=== PATIENT | female | born 1965 | race Caucasian/White ===

== ENCOUNTER 2017-01-30 10:13 | Inpatient (IN) | payer BC ==
[~2017-01-30] VITALS: Ht 152.4 cm; Wt 85.9 kg
[2017-01-30] VITALS (8 sets, daily range): BP systolic 136–147; BP diastolic 64–94; PULSE 78–124; RESP 16–20; TEMP 97.9–98; O2SAT 94–99
[2017-01-30] MEDS ORDERED: SODIUM CHLOR 0.9% 1000 ML INJ 1,000 ML IV ONE (10:30)
[2017-01-30] MEDS ORDERED: ONDANSETRON HCL 4 MG/2 ML VIAL IV PUSH ONE (10:30)
[2017-01-30] MEDS ORDERED: SODIUM CHLORIDE 0.9% FLUSH 10 ML FLUSH IV FLUSH PRN ×2 (10:30→13:45)
--- NOTE | 2017-01-30 10:34 | PD ---
HPI Chief Complaint: GI Complaint Time Seen by Provider: 10:28 Travel History International Travel<30 days: No Contact w/Intl Traveler<30days: No Traveled to known affect area: No History of Present Illness HPI 51-year-old female patient with history of no significant past medical issues, presents to the ER today with nausea, vomiting, abdominal cramping pains, and states she has been constipated for several weeks. She did have a bowel movement with Dulcolax this morning. She denies any fevers or any other symptoms. Abdominal pain is generalized and stated to be a 9 out of 10. She does not know any sick contacts. She denies any exacerbating or alleviating factors. Modifying Factors: None Associated Signs & Symptoms: Nausea, vomiting, abdominal pains, constipation Risk Factors: None PFSH Past Medical History Diminished Hearing: No ?: Not Social History Alcohol Use: Yes Tobacco Use: No Substance Use: No Allergies-Medications (Allergen,Severity, Reaction): Coded Allergies: No Known Allergies (Unverified Adverse Reaction, Unknown, 01/30/17) Reported Meds & Prescriptions Reported Meds & Active Scripts Active Reported Xanax (Alprazolam) 0.25 Mg Tab Unknown Dose PO DIRECTED PRN Bupropion HCl 75 Mg Tab Unknown Dose PO BID Review of Systems Except as stated in HPI: all other systems reviewed are Neg Physical Exam Narrative GENERAL: Well-developed middle age female patient currently in mild distress. Awake and oriented 3. SKIN: Focused skin assessment warm/dry. HEAD: Atraumatic. Normocephalic. EYES: Pupils equal and round. No scleral icterus. No injection or drainage. ENT: No nasal bleeding or discharge. Mucous membranes pink and moist. NECK: Trachea midline. No JVD. Supple. CARDIOVASCULAR: Regular rate and rhythm. No murmur appreciated. RESPIRATORY: No accessory muscle use. Clear to auscultation. Breath sounds equal bilaterally. GASTROINTESTINAL: Abdomen soft, mild diffuse abdominal tenderness without guarding or rebound, nondistended. Hepatic and splenic margins not palpable. MUSCULOSKELETAL: No obvious deformities. No clubbing. No cyanosis. No edema. NEUROLOGICAL: Awake and alert. No obvious cranial nerve deficits. Motor grossly within normal limits. Normal speech. PSYCHIATRIC: Appropriate mood and affect; insight and judgment normal. Data Data Last Documented VS Vital Signs Date Time Temp Pulse Resp B/P (MAP) Pulse Ox O2 Delivery O2 Flow Rate FiO2 01/30/17 12:12 85 16 147/72 (97) 99 Room Air 01/30/17 10:17 98.0 Orders Orders Complete Blood Count With Diff (01/30/17 10:25) Comprehensive Metabolic Panel (01/30/17 10:25) Lipase (01/30/17 10:25) Urinalysis - C+S If Indicated (01/30/17 10:25) Iv Access Insert/Monitor (01/30/17 10:25) Ecg Monitoring (01/30/17 10:25) Oximetry (01/30/17 10:25) Sodium Chloride 0.9% Flush (Ns Flush) (01/30/17 10:30) Sodium Chlor 0.9% 1000 Ml Inj (Ns 1000 M (01/30/17 10:30) Ondansetron Inj (Zofran Inj) (01/30/17 10:30) Abdomen, Flat & Upright (01/30/17 10:28) Ct Abd/Pel W Iv Contrast(Rout) (01/30/17 11:31) Hydromorphone Pf Inj (Dilaudid Pf Inj) (01/30/17 12:30) Iohexol 350 Inj (Omnipaque 350 Inj) (01/30/17 12:50) Blood Culture (01/30/17 13:02) Ciprofloxacin 400 Mg Premix (Cipro 400 M (01/30/17 13:15) Metronidazole 500 Mg Inj (Flagyl 500 Mg (01/30/17 13:15) Admit Order (Ed Use Only) (01/30/17 13:37) Labs Laboratory Tests Test 01/30/17 10:35 01/30/17 10:45 Urine Collection Type CLEAN CATCH Urine Color YELLOW Urine Turbidity CLEAR Urine pH 5.5 Urine Specific [place] 1.025 Urine Protein NEG mg/dL Urine Glucose (UA) NEG mg/dL Urine Ketones 40 mg/dL Urine Occult Blood TRACE Urine Nitrite NEG Urine Bilirubin NEG Urine Leukocyte Esterase NEG Urine RBC 0-3 /hpf Urine WBC 0-2 /hpf Urine Squamous Epithelial Cells 0-5 /hpf Urine Bacteria OCC /hpf Microscopic Urinalysis Comment CULT NOT INDICATED Urine Collection Time 10:35 White Blood Count 25.3 TH/MM3 Red Blood Count 5.57 MIL/MM3 Hemoglobin 16.3 GM/DL Hematocrit 50.0 % Mean Corpuscular Volume 89.7 FL Mean Corpuscular Hemoglobin 29.3 PG Mean Corpuscular Hemoglobin Concent 32.6 % Red Cell Distribution Width 13.3 % Platelet Count 341 TH/MM3 Mean Platelet Volume 8.3 FL Neutrophils (%) (Auto) 86.2 % Lymphocytes (%) (Auto) 3.3 % Monocytes (%) (Auto) 6.7 % Eosinophils (%) (Auto) 0.0 % Basophils (%) (Auto) 3.8 % Neutrophils # (Auto) 21.8 TH/MM3 Lymphocytes # (Auto) 0.8 TH/MM3 Monocytes # (Auto) 1.7 TH/MM3 Eosinophils # (Auto) 0.0 TH/MM3 Basophils # (Auto) 1.0 TH/MM3 CBC Comment AUTO DIFF Differential Total Cells Counted 100 Neutrophils % (Manual) 81 % Band Neutrophils % 5 % Lymphocytes % 6 % Monocytes % 8 % Neutrophils # (Manual) 21.8 TH/MM3 Differential Comment FINAL DIFF MANUAL Platelet Estimate NORMAL Platelet Morphology Comment NORMAL Blood Urea Nitrogen 22 MG/DL Creatinine 0.96 MG/DL Random Glucose 124 MG/DL Total Protein 8.5 GM/DL Albumin 3.8 GM/DL Calcium Level 9.1 MG/DL Alkaline Phosphatase 66 U/L Aspartate Amino Transf (AST/SGOT) 32 U/L Alanine Aminotransferase (ALT/SGPT) 29 U/L Total Bilirubin 0.6 MG/DL Sodium Level 135 MEQ/L Potassium Level 4.7 MEQ/L Chloride Level 102 MEQ/L Carbon Dioxide Level 24.6 MEQ/L Anion Gap 8 MEQ/L Estimat Glomerular Filtration Rate 61 ML/MIN Lipase 64 U/L [facility] Medical Decision Making Medical Screen Exam Complete: Yes Emergency Medical Condition: Yes Medical Record Reviewed: Yes Interpretation(s) Laboratory Tests Test 01/30/17 10:35 01/30/17 10:45 Urine Ketones 40 mg/dL (NEG) Urine Occult Blood TRACE (NEG) Urine Bacteria OCC /hpf (NONE) White Blood Count 25.3 TH/MM3 (4.0-11.0) Red Blood Count 5.57 MIL/MM3 (4.00-5.30) Hemoglobin 16.3 GM/DL (11.6-15.3) Hematocrit 50.0 % (35.0-46.0) Neutrophils (%) (Auto) 86.2 % (16.0-70.0) Lymphocytes (%) (Auto) 3.3 % (9.0-44.0) Basophils (%) (Auto) 3.8 % (0.0-2.0) Neutrophils # (Auto) 21.8 TH/MM3 (1.8-7.7) Lymphocytes # (Auto) 0.8 TH/MM3 (1.0-4.8) Monocytes # (Auto) 1.7 TH/MM3 (0-0.9) Basophils # (Auto) 1.0 TH/MM3 (0-0.2) Neutrophils % (Manual) 81 % (16-70) Lymphocytes % 6 % (9-44) Neutrophils # (Manual) 21.8 TH/MM3 (1.8-7.7) Blood Urea Nitrogen 22 MG/DL (7-18) Random Glucose 124 MG/DL (74-106) Total Protein 8.5 GM/DL (6.4-8.2) Sodium Level 135 MEQ/L (136-145) Estimat Glomerular Filtration Rate 61 ML/MIN (>89) Lipase 64 U/L (73-393) Last 24 hours Impressions Abdomen/Pelvis CT 01/30/17 1131 Signed Impressions: Service Date/Time: Monday, January 30, 2017 12:42 - CONCLUSION: Colitis involving most of the colon, sparing the sigmoid which has multiple diverticuli There is no free fluid or free air. Steve Taylor MD FACR Abdomen X-Ray 01/30/17 1028 Signed Impressions: Service Date/Time: Monday, January 30, 2017 10:33 - CONCLUSION: Negative. Minimal stool sigmoid colon. Steve Taylor MD FACR Differential Diagnosis Nausea, vomiting, abdominal pains, constipation: Constipation versus gastroenteritis versus dehydration versus metabolic issues versus obstruction Narrative Course Lab work shows significant leukocytosis and CAT scan was ordered for further evaluation. CAT scan is showing colitis area and no other acute intra- abdominal processes were identified. She was given IV Cipro and Flagyl after cultures of the blood was taken. At this point, my plan would be to admit her for further treatment and evaluation. Case was discussed with hospitalist for admission. Diagnosis Primary Impression: Colitis Additional Impressions: GI bleed Sepsis Admitting Information Admitting Physician Requests: Admit Melquiades Valentine MD Jan 30, 2017 10:34
[2017-01-30] MEDS ORDERED: ALPR.25 PO (10:38)
[2017-01-30] MEDS ORDERED: BUPR75TA PO (10:38)
[2017-01-30 10:43] LABS: GLUCOSE,URINE NEG (NEG); KETONE, URINE 40 mg/dL (NEG); NITRITE,URINE NEG (NEG); PH, URINE 5.5 (5.0-8.5); URINE LEUKOCYTE ESTERASE NEG (NEG)
[2017-01-30 10:44] LABS: BILIRUBIN, URINE NEG (NEG); BLOOD, URINE TRACE (NEG)
[2017-01-30 10:47] LABS: BACTERIA, URINE OCC /hpf; RBC, URINE 0-3 /hpf (0-3); SQUAMOUS EPITHELIAL CELL URINE 0-5 /hpf (0-5); URINE COLOR YELLOW (YELLW/STRAW); WBC, URINE 0-2 /hpf (0-5)
[2017-01-30 10:54] LABS: AUTOMATED NEUTROPHIL # 21.8 TH/MM3 (1.8-7.7); BASOPHIL % 3.8 % (0.0-2.0); HEMOGLOBIN 16.3 GM/DL (11.6-15.3); LYMPH % 3.3 % (9.0-44.0); LYMPHOCYTE # 0.8 TH/MM3 (1.0-4.8); MEAN CELL VOLUME 89.7 FL (80.0-100.0); MEAN CORPUSCULAR HEMOGLOBIN 29.3 PG (27.0-34.0); MEAN CORPUSCULAR HGB CONC 32.6 % (32.0-36.0); MEAN PLATELET VOLUME 8.3 FL (7.0-11.0); MONO % 6.7 % (0.0-8.0); MONOCYTE # 1.7 TH/MM3 (0-0.9); NEUT % 86.2 % (16.0-70.0); PLATELET COUNT 341 TH/MM3 (150-450); RED BLOOD COUNT 5.57 MIL/MM3 (4.00-5.30); RED CELL DISTRIBUTION WIDTH 13.3 % (11.6-17.2); WHITE BLOOD COUNT 25.3 TH/MM3 (4.0-11.0)
[2017-01-30 11:04] LABS: CHLORIDE 102 MEQ/L (98-107); SODIUM (NA) 135 MEQ/L (136-145)
--- NOTE | 2017-01-30 11:08 | RADRPT ---
EXAM DATE/TIME: 01/30/2017 10:33 [facility] COMPARISON: No previous studies available for comparison. INDICATIONS : Abdominal pain. Constipation for one week. Patient states she took Dulcolax this monrning and has bee n vomting. MEDICAL HISTORY : None. SURGICAL HISTORY : Hysterectomy. Bladder repair. ENCOUNTER: Initial ACUITY: 1 day PAIN SCORE: 8/10 LOCATION: Bilateral abdomen. FINDINGS: Supine and upright views of the abdomen were performed. The abdominal bowel gas pattern is normal. No air fluid levels are seen. No abnormal masses, calcifications, or organomegaly is seen. The visu alized lower lungs are clear. No evidence of free intraperitoneal gas. The osseous structures are u nremarkable. CONCLUSION: Negative. Minimal stool sigmoid colon. Steve Taylor MD FACR on January 30, 2017 at 11:06 Board Certified Radiologist. This report was verified electronically.
[2017-01-30 11:09] LABS: ALBUMIN 3.8 GM/DL (3.4-5.0); BICARBONATE 24.6 MEQ/L (21.0-32.0); CALCIUM 9.1 MG/DL (8.5-10.1); GLUCOSE,RANDOM 124 MG/DL (74-106); LIPASE 64 U/L (73-393)
[2017-01-30 11:10] LABS: BLOOD UREA NITROGEN 22 MG/DL (7-18)
[2017-01-30 11:12] LABS: ALT (GPT) 29 U/L (10-53); AST (GOT) 32 U/L (15-37); CREATININE 0.96 MG/DL (0.50-1.00); GLOMERULAR FILTRATION RATE 61 ML/MIN (>89)
[2017-01-30 11:14] LABS: TOTAL BILIRUBIN ADULT 0.6 MG/DL (0.2-1.0); TOTAL PROTEIN 8.5 GM/DL (6.4-8.2)
[2017-01-30 11:15] LABS: ALKALINE PHOSPHATASE 66 U/L (45-117)
[2017-01-30 12:01] LABS: BANDS 5 % (0-6); LYMPHOCYTES 6 % (9-44); MONOCYTES 8 % (0-8); NEUTROPHIL # MANUAL DIFF 21.8 TH/MM3 (1.8-7.7); POLYS (SEG NEUTROPHILS) 81 % (16-70)
[2017-01-30] MEDS ORDERED: HYDROmorphone HCL PF 2 MG/ML VIAL IV PUSH ONE (12:30)
[2017-01-30] MEDS ORDERED: IOHEXOL 350 MG/ML 10 ML VIAL (for RAD DIAG) IVCONTRAST ONE (12:50)
[2017-01-30] MEDS ORDERED: metroNIDAZOLE 500 MG INJ 100 ML IV ONE (13:15)
[2017-01-30] MEDS ORDERED: CIPROFLOXACIN 400 MG PREMIX 200 ML IV ONE (13:15)
--- NOTE | 2017-01-30 13:19 | RADRPT ---
EXAM DATE/TIME: 01/30/2017 12:42 [facility] COMPARISON: No previous studies available for comparison. INDICATIONS : Diffuse abdominal pain. IV CONTRAST: 90 cc Omnipaque 350 (iohexol) IV ORAL CONTRAST: No oral contrast ingested. RADIATION DOSE: 16.92 CTDIvol (mGy) MEDICAL HISTORY : None SURGICAL HISTORY : Hysterectomy. Bladder sling ENCOUNTER: Initial ACUITY: 2 days PAIN SCALE: 6/10 LOCATION: Bilateral pelvis abdomen TECHNIQUE: Volumetric scanning of the abdomen and pelvis was performed. Using automated exposure control and ad justment of the mA and/or kV according to patient size, radiation dose was kept as low as reasonably achievable to obtain optimal diagnostic quality images. DICOM format image data is available electro nically for review and comparison. FINDINGS: Lung base is are clear. Liver and gallbladder are unremarkable Spleen, pancreas and adrenals unremarkable Symmetric renal function Colitis involving most of the exiting transverse and descending colon down to the level of sigmoid co nuria normal diverticula are noted. Pelvic contents are otherwise unremarkable. CONCLUSION: Colitis involving most of the colon, sparing the sigmoid which has multiple diverticu li There is no free fluid or free air. Steve Taylor MD FACR on January 30, 2017 at 13:16 Board Certified Radiologist. This report was verified electronically.
[2017-01-30] MEDS ORDERED: ACETAMINOPHEN 325 MG TAB PO PRN (13:45)
[2017-01-30] MEDS ORDERED: ACETAMINOPHEN/HYDROcodone 325 MG/5 MG TAB PO PRN (13:45)
--- NOTE | 2017-01-30 14:13 | HHI.HP ---
HPI Service [facility] Primary Care Physician Carlos Elias DO Admission Diagnosis colitis/GI bleeding/leukocytosis/sepsis Diagnoses: (1) Sepsis Diagnosis: Principal (2) Colitis Diagnosis: Principal (3) GI bleed Diagnosis: Principal Travel History International Travel<30 Days: No Contact w/Intl Traveler <30 Da: No Traveled to Known Affected Are: No Sepsis Criteria SIRS Criteria (2 or more): Heart rate over 90, WBC > 27533, < 4000 or > 10% bands Sepsis Criteria (SIRS+source): Infect source susp/known History of Present Illness 51-year-old female with known history of anxiety who presented to hospital because acute onset abdominal pain, nausea, vomiting, diarrhea, blood in her stool patient indicates her last few weeks she has been having difficulty with making stool which she felt that she was constipated. Yesterday she did take a Dulcolax and she went to a family dinner. At the dinner they mostly [place] food with anti-pasta,pasta, patient did well until early this morning at approximately 1:30 AM when she woke up with severe generalized cramping abdominal pain. She started having nausea and vomiting, and a few hours later she started with a watery diarrhea which she indicates was red in coloration. Last time she vomited was 6 AM this morning. And she is still having red colored watery stool. Patient had workup done emergency department found to have sepsis with leukocytosis, tachycardia and colitis. CT scan shows colitis involving most of the colon, sparing the sigmoid which have multiple diverticuli. ER physician recommended the patient be admitted for further evaluation and management. Review of Systems Gastrointestinal: COMPLAINS OF: Abdominal pain, Bloody stools, Diarrhea, Nausea , Vomiting Except as stated in HPI: all other systems reviewed are Neg Past Family Social History Past Medical History Anxiety Past Surgical History Partial hysterectomy Bladder sling Reported Medications Reported Meds & Active Scripts Active Reported Xanax (Alprazolam) 0.25 Mg Tab Unknown Dose PO DIRECTED PRN Bupropion HCl 75 Mg Tab Unknown Dose PO BID Allergies: Coded Allergies: No Known Allergies (Unverified Allergy, Unknown, 01/30/17) Family History Reviewed is significant for father having colon cancer Social History Trace alcohol rarely. Denies any tobacco or illicit drug use Physical Exam Vital Signs Vital Signs Date Time Temp Pulse Resp B/P (MAP) Pulse Ox O2 Delivery O2 Flow Rate FiO2 01/30/17 13:44 98.0 107 16 139/64 (89) 94 Room Air 01/30/17 12:12 85 16 147/72 (97) 99 Room Air 01/30/17 11:24 78 01/30/17 10:37 104 01/30/17 10:35 98 Room Air 01/30/17 10:17 98.0 124 16 142/94 (110) 98 Physical Exam GENERAL: Well-developed, well-nourished, in no acute distress. alert and orientated HEENT: Head is normocephalic without any lesions or masses noted. Facial features are symmetric. Eyes: Pupils equal round reactive to light. Extraocular muscles are intact. Conjunctivae were clear. Oropharyngeal: Pharynx without any erythema edema. Tongue is midline without deviation. Buccal mucosa is moist without any masses or lesions NECK: Supple without any masses. Trachea midline no deviation. No JVD, no bruits are appreciated CARDIAC: Regular rhythm, regular rate. S1/S2 are heard. No murmurs gallops or rubs. LUNGS: Clear to auscultation bilaterally. No wheeze, rhonchi or rales. No use of accessory muscles on inspiration or expiration. ABDOMEN: Soft, mild diffuse tenderness noted, nondistended. Bowel sounds heard in all 4 quadrants. No organomegaly or masses. Negative rebound, negative guarding EXTREMITIES: No edema, pulses are equal bilaterally. No cyanosis or clubbing NEUROLOGY: Mood and affect appear appropriate. Cranial nerves II through XII grossly intact. Muscle strength 5/5 in upper and lower extremities bilaterally. Deep tendon reflexes are 2+ in upper and lower extremities bilaterally. Laboratory Laboratory Tests Test 01/30/17 10:35 01/30/17 10:45 Urine Collection Type CLEAN CATCH Urine Color YELLOW Urine Turbidity CLEAR Urine pH 5.5 Urine Specific [place] 1.025 Urine Protein NEG Urine Glucose (UA) NEG Urine Ketones 40 Urine Occult Blood TRACE Urine Nitrite NEG Urine Bilirubin NEG Urine Leukocyte Esterase NEG Urine RBC 0-3 Urine WBC 0-2 Urine Squamous Epithelial Cells 0-5 Urine Bacteria OCC Microscopic Urinalysis Comment CULT NOT INDICATED Urine Collection Time 10:35 White Blood Count 25.3 Red Blood Count 5.57 Hemoglobin 16.3 Hematocrit 50.0 Mean Corpuscular Volume 89.7 Mean Corpuscular Hemoglobin 29.3 Mean Corpuscular Hemoglobin Concent 32.6 Red Cell Distribution Width 13.3 Platelet Count 341 Mean Platelet Volume 8.3 Neutrophils (%) (Auto) 86.2 Lymphocytes (%) (Auto) 3.3 Monocytes (%) (Auto) 6.7 Eosinophils (%) (Auto) 0.0 Basophils (%) (Auto) 3.8 Neutrophils # (Auto) 21.8 Lymphocytes # (Auto) 0.8 Monocytes # (Auto) 1.7 Eosinophils # (Auto) 0.0 Basophils # (Auto) 1.0 CBC Comment AUTO DIFF Differential Total Cells Counted 100 Neutrophils % (Manual) 81 Band Neutrophils % 5 Lymphocytes % 6 Monocytes % 8 Neutrophils # (Manual) 21.8 Differential Comment FINAL DIFF MANUAL Platelet Estimate NORMAL Platelet Morphology Comment NORMAL Blood Urea Nitrogen 22 Creatinine 0.96 Random Glucose 124 Total Protein 8.5 Albumin 3.8 Calcium Level 9.1 Alkaline Phosphatase 66 Aspartate Amino Transf (AST/SGOT) 32 Alanine Aminotransferase (ALT/SGPT) 29 Total Bilirubin 0.6 Sodium Level 135 Potassium Level 4.7 Chloride Level 102 Carbon Dioxide Level 24.6 Anion Gap 8 Estimat Glomerular Filtration Rate 61 Lipase 64 Date/Time Source Procedure Growth Status 01/30/17 13:15 Blood Peripheral Aerobic Blood Culture Pending Received 01/30/17 13:15 Blood Peripheral Anaerobic Blood Culture Pending Received Result Diagram: 01/30/17 1045 01/30/17 1045 Imaging Last Impressions Abdomen/Pelvis CT 01/30/17 1131 Signed Impressions: Service Date/Time: Monday, January 30, 2017 12:42 - CONCLUSION: Colitis involving most of the colon, sparing the sigmoid which has multiple diverticuli There is no free fluid or free air. Steve Taylor MD FACR Abdomen X-Ray 01/30/17 1028 Signed Impressions: Service Date/Time: Monday, January 30, 2017 10:33 - CONCLUSION: Negative. Minimal stool sigmoid colon. Steve Taylor MD FACR Septic Shock Reassessment Septic shock perfusion: reassessment completed Caprini VTE Risk Assessment Caprini VTE Risk Assessment: Mod/High Risk (score >= 2) Caprini Risk Assessment Model Point Value = 1 Point Value = 2 Point Value = 3 Point Value = 5 Age 41-60 Minor surgery BMI > 25 kg/m2 Swollen legs Varicose veins or History of unexplained or recurrent spontaneous Oral contraceptives or hormone replacement Sepsis (< 1 month) Serious lung disease, including pneumonia (< 1 month) Abnormal pulmonary function Acute myocardial infarction Congestive heart failure (< 1 month) History of inflammatory bowel disease Medical patient at bed rest Age 61-74 Arthroscopic surgery Major open surgery (> 45 min) Laparoscopic surgery (> 45 min) Malignancy Confined to bed (> 72 hours) Immobilizing plaster cast Central venous access Age >= 75 History of VTE Family history of VTE Factor V Leiden Prothrombin [id number] Lupus anticoagulant Anticardiolipin antibodies Elevated serum homocysteine Heparin-induced thrombocytopenia Other congenital or acquired thrombophilia Stroke (< 1 month) Elective arthroplasty Hip, pelvis, or leg fracture Acute spinal cord injury (< 1 month) Prophylaxis Regimen Total Risk Factor Score Risk Level Prophylaxis Regimen 0-1 Low Early ambulation 2 Moderate Order ONE of the following: *Sequential Compression Device (SCD) *Heparin 5000 units SQ BID 3-4 Higher Order ONE of the following medications: *Heparin 5000 units SQ TID *Enoxaparin/Lovenox 40 mg SQ daily (WT < 150 kg, CrCl > 30 mL/min) *Enoxaparin/Lovenox 30 mg SQ daily (WT < 150 kg, CrCl > 10-29 mL/min) *Enoxaparin/Lovenox 30 mg SQ BID (WT < 150 kg, CrCl > 30 mL/min) AND/OR *Sequential Compression Device (SCD) 5 or more Highest Order ONE of the following medications: *Heparin 5000 units SQ TID (Preferred with Epidurals) *Enoxaparin/Lovenox 40 mg SQ daily (WT < 150 kg, CrCl > 30 mL/min) *Enoxaparin/Lovenox 30 mg SQ daily (WT < 150 kg, CrCl > 10-29 mL/min) *Enoxaparin/Lovenox 30 mg SQ BID (WT < 150 kg, CrCl > 30 mL/min) AND *Sequential Compression Device (SCD) Assessment and Plan Assessment and Plan Sepsis Patient meets criteria with leukocytosis, tachycardia, colitis Patient started on Flagyl and Cipro IV Urinalysis was clear Will check lactic acid level Obtain stool studies, blood cultures Colitis involving most of the colon sparing the sigmoid Likely infectious in nature, however inflammatory cannot be completely ruled out GI consulted for recommendations Monitor stool studies GI bleed with Hematochezia Likely secondary to colitis Monitor hemoglobin and hematocrit Transfuse if hemoglobin below 8.0 Anxiety Continue home medications DVT prevention Sequential compression devices, avoid chemical prophylaxis secondary to GI bleed Discussed Condition With ER physician, patient, family at bedside Physician Certification 2 Midnight Certification Type: Admission for Inpatient Services Order for Inpatient Services The services are ordered in accordance with Medicare regulations or non- Medicare payer requirements, as applicable. In the case of services not specified as inpatient-only, they are appropriately provided as inpatient services in accordance with the 2-midnight benchmark. Estimated LOS (days): 3 days is the estimated time the patient will need to remain in the hospital, assuming treatment plan goals are met and no additional complications. Post-Hospital Plan: Not yet determined Preston Chilel Jan 30, 2017 14:13
[2017-01-30] MEDS ORDERED: CALCIUM CARBONATE 500 MG CHEWABLE TAB CHEW PRN (14:15)
[2017-01-30] MEDS: SODIUM CHLOR 0.9% 1000 ML INJ 1,000 ML IV SCH (14:47)
[2017-01-30] MEDS: ONDANSETRON HCL 4 MG/2 ML VIAL IV PUSH PRN (14:49)
[2017-01-30 15:01] LABS: HEMATOCRIT 45.4 % (35.0-46.0); HEMOGLOBIN 14.9 GM/DL (11.6-15.3)
[2017-01-30 18:10] LABS: LACTIC ACID SEPSIS PROTOCOL 2.2 mmol/L (0.4-2.0)
[2017-01-30] MEDS: SODIUM CHLORIDE 0.9% FLUSH 10 ML FLUSH IV FLUSH SCH (20:07)
[2017-01-30] MEDS: metroNIDAZOLE 500 MG INJ 100 ML IV SCH (20:09)
[2017-01-30] MEDS: MORPHINE SULFATE 2 MG/ML INJ IV PUSH PRN (20:10)
[2017-01-30 20:21] LABS: HEMATOCRIT 45.2 % (35.0-46.0); HEMOGLOBIN 14.3 GM/DL (11.6-15.3)
[2017-01-31] VITALS: BP 139/69; PULSE 98; RESP 20; TEMP 98.3; O2SAT 94
[2017-01-31] MEDS: CIPROFLOXACIN 400 MG PREMIX 200 ML IV SCH ×2 (00:24→12:28)
[2017-01-31] MEDS: MORPHINE SULFATE 2 MG/ML INJ IV PUSH PRN ×3 (00:25→20:55)
[2017-01-31] MEDS: TEMAZEPAM 15 MG CAP PO PRN ×2 (02:17→23:28)
[2017-01-31] MEDS: SODIUM CHLOR 0.9% 1000 ML INJ 1,000 ML IV SCH ×3 (05:22→19:40)
[2017-01-31] MEDS: metroNIDAZOLE 500 MG INJ 100 ML IV SCH ×3 (05:23→20:54)
--- NOTE | 2017-01-31 05:25 | MB ---
cc: JOCE NUGENT MD DATE OF CONSULTATION 01/30/2017 TYPE OF CONSULTATION GI consult. REASON FOR CONSULTATION Colitis and diarrhea. HISTORY OF PRESENT ILLNESS A 51-year-old female patient with no significant past medical history except for diverticulosis that was diagnosed by colonoscopy in 2009 who presented to the emergency room complaining of abdominal cramps of several hours prior to presentation and bloody diarrhea that is described as every 15-20 minutes, started as a watery diarrhea, subsequently changed to fresh blood without any fecal material. The patient denies any other associated symptoms except for occasional chills but no fever. Denies any change in weight or appetite. Denies any previous similar attack. The patient did have nausea and vomiting proceeding this attack that resolved by arriving to the emergency room. Also the patient did complain of dysphagia to liquids and solids for several years, unchanged over the period of time. In the emergency room the patient was seen and evaluated. She had a blood test that showed leukocytes of 25,000 with hemoglobin of 16, hematocrit 15 that went down after several hours of hydration to a hemoglobin of 14.9, hematocrit 45.4. Her chemistry were essentially unremarkable except for BUN of [address] scan of the abdomen that showed colitis involving most of the colon sparing the sigmoid which has multiple diverticula but no free fluid seen throughout the examination. REVIEW OF SYSTEMS All fourteen point elements negative except the ones mentioned in the History of Present Illness. PAST MEDICAL HISTORY Diverticulosis diagnosed in 2009 by colonoscopy. No other associated medical conditions. SOCIAL HISTORY The patient drinks alcohol socially. Denies tobacco or alcohol abuse. ALLERGIES No known drug allergies. MEDICATIONS Actively on Xanax. FAMILY HISTORY Noncontributory. PHYSICAL EXAMINATION GENERAL: On examination the patient is found to be comfortable, not in distress or in pain. VITAL SIGNS: Hemodynamically stable with respiratory rate of 18, temperature 97.9, pulse 79. Temperature 97.9, pulse oximetry 97. HEAD AND NECK EXAMINATION: No jaundice. No pallor. Normocephalic, atraumatic. Pupils equal and reactive to light. Supple neck. No lymphadenopathy. No thyromegaly. CHEST: Clear to auscultation bilaterally. No crackles or wheezes. HEART: Regular rate and rhythm. No murmurs. ABDOMEN: Soft, nontender. No hepatosplenomegaly. No palpable masses. Slightly tender on deep palpation. EXTREMITIES: Normal pulses. No edema. NEUROLOGIC EXAMINATION: Cranial nerves II-XII grossly intact. No focal motor or sensory deficits. SKIN: No rashes, no edema. ASSESSMENT AND PLAN A 51-year-old female patient with no significant medical history who presented with the following problems: 1. Nausea and vomiting of several hours' duration followed by bloody diarrhea. 2. History of diverticulosis by colonoscopy in [address] scan showing evidence of pancolitis with sparing of the sigmoid colon. 4. History of recurrent dysphagia to liquids and solids of several years' duration and that is not progressive over the last year's. RECOMMENDATIONS 1. We will treat her as infectious colitis, check for stool studies including culture and sensitivity, ova and parasites, leukocytes and for other microorganisms. 2. Agree with antibiotic treatment, aggressive IV hydration. 3. Follow up clinically for the time being. 4. We will need upper endoscopy to evaluate her dysphagia; that can be done when she is more stable. Further recommendations to follow. Thank you for the consult. Joce GARCIA/MERVIN /7:04 PM /5:00 AM
[2017-01-31 06:25] LABS: AUTOMATED NEUTROPHIL # 15.6 TH/MM3 (1.8-7.7); BASOPHIL # 0.6 TH/MM3 (0-0.2); BASOPHIL % 2.9 % (0.0-2.0); EOSINOPHIL # 0.1 TH/MM3 (0-0.4); EOSINOPHIL % 0.3 % (0.0-4.0); HEMATOCRIT 42.1 % (35.0-46.0); HEMOGLOBIN 13.8 GM/DL (11.6-15.3); LYMPH % 7.9 % (9.0-44.0); LYMPHOCYTE # 1.5 TH/MM3 (1.0-4.8); MEAN CELL VOLUME 89.1 FL (80.0-100.0); MEAN CORPUSCULAR HEMOGLOBIN 29.3 PG (27.0-34.0); MEAN CORPUSCULAR HGB CONC 32.9 % (32.0-36.0); MEAN PLATELET VOLUME 8.6 FL (7.0-11.0); MONO % 6.4 % (0.0-8.0); MONOCYTE # 1.2 TH/MM3 (0-0.9); NEUT % 82.5 % (16.0-70.0); PLATELET COUNT 266 TH/MM3 (150-450); RED BLOOD COUNT 4.72 MIL/MM3 (4.00-5.30); RED CELL DISTRIBUTION WIDTH 12.5 % (11.6-17.2)
[2017-01-31 07:05] LABS: BICARBONATE 25.2 MEQ/L (21.0-32.0); CREATININE 0.77 MG/DL (0.50-1.00)
[2017-01-31 07:06] LABS: CALCIUM 8.1 MG/DL (8.5-10.1)
[2017-01-31 08:00] VITALS: BP 148/79; PULSE 101; RESP 14; TEMP 98.8; O2SAT 99
[2017-01-31] MEDS: SODIUM CHLORIDE 0.9% FLUSH 10 ML FLUSH IV FLUSH SCH ×2 (09:00→20:54)
--- NOTE | 2017-01-31 09:00 | HHI.PR ---
Subjective Remarks With diarrhea and rectal bleed last night and also this morning. No fever or chills. No vomiting or nausea. Denies fevers or chills. No abdominal pain at this time. Objective Vitals Vital Signs Date Time Temp Pulse Resp B/P (MAP) Pulse Ox O2 Delivery O2 Flow Rate FiO2 01/31/17 00:00 98.3 98 20 139/69 (92) 94 01/30/17 20:00 98.0 95 20 145/66 (92) 99 01/30/17 16:00 97.9 79 18 136/70 (92) 97 01/30/17 14:23 01/30/17 13:44 98.0 107 16 139/64 (89) 94 Room Air 01/30/17 12:12 85 16 147/72 (97) 99 Room Air 01/30/17 11:24 78 01/30/17 10:37 104 01/30/17 10:35 98 Room Air 01/30/17 10:17 98.0 124 16 142/94 (110) 98 I/O 01/30/17 01/30/17 01/30/17 01/31/17 01/31/17 01/31/17 07:00 15:00 23:00 07:00 15:00 23:00 Intake Total 1300 ml 200 ml 1881 ml Balance 1300 ml 200 ml 1881 ml Intake Oral 100 ml 480 ml IV Total 1200 ml 200 ml 1401 ml # Voids 1 6 # Bowel Movements 2 0 Result Diagram: 01/31/17 0535 01/31/17 0535 Imaging Last Impressions Abdomen/Pelvis CT 01/30/17 1131 Signed Impressions: Service Date/Time: Monday, January 30, 2017 12:42 - CONCLUSION: Colitis involving most of the colon, sparing the sigmoid which has multiple diverticuli There is no free fluid or free air. Steve Taylor MD FACR Abdomen X-Ray 01/30/17 1028 Signed Impressions: Service Date/Time: Monday, January 30, 2017 10:33 - CONCLUSION: Negative. Minimal stool sigmoid colon. Steve Taylor MD FACR Objective Remarks GENERAL: Well-developed, well-nourished, in no acute distress. alert and orientated CARDIAC: Regular rhythm, regular rate. S1/S2 are heard. No murmurs gallops or rubs. LUNGS: Clear to auscultation bilaterally. No wheeze, rhonchi or rales. No use of accessory muscles on inspiration or expiration. ABDOMEN: Soft, mild diffuse tenderness noted, nondistended. Bowel sounds heard in all 4 quadrants. No organomegaly or masses. Negative rebound, negative guarding EXTREMITIES: No edema, pulses are equal bilaterally. No cyanosis or clubbing NEUROLOGY: Mood and affect appear appropriate. Cranial nerves II through XII grossly intact. Muscle strength 5/5 in upper and lower extremities bilaterally. Deep tendon reflexes are 2+ in upper and lower extremities bilaterally. A/P Problem List: (1) Sepsis ICD Code: A41.9 - Sepsis, unspecified organism Status: Acute (2) Colitis ICD Code: K52.9 - Noninfective gastroenteritis and colitis, unspecified Status: Acute (3) GI bleed ICD Code: K92.2 - Gastrointestinal hemorrhage, unspecified Status: Acute Assessment and Plan Sepsis Patient meets criteria with leukocytosis, tachycardia, colitis Patient started on Flagyl and Cipro IV Urinalysis was clear Lactic acid level 2.1 Obtain stool studies, blood cultures Colitis involving most of the colon sparing the sigmoid Likely infectious in nature, however inflammatory cannot be completely ruled out GI consulted for recommendations Monitor stool studies GI bleed with Hematochezia Likely secondary to colitis Monitor hemoglobin and hematocrit Transfuse if hemoglobin below 8.0 Anxiety Continue home medications DVT prevention Sequential compression devices, avoid chemical prophylaxis secondary to GI bleed Discussed Condition With patient, nurse, family at bedside DC plan: pending improvement plan for EGD by GI when patient improves. DC when cleared by Kelley Carpenter MD Jan 31, 2017 09:00
--- NOTE | 2017-01-31 11:27 | HHI.GIFU ---
Subjective Remarks Pt resting in bed. Complaining of continued rectal bleeding. Four episodes today. States it is not mixed with stool. (Mahogany Easton) Objective Vitals I&O Vital Signs Date Time Temp Pulse Resp B/P (MAP) Pulse Ox O2 Delivery O2 Flow Rate FiO2 01/31/17 08:00 98.8 101 14 148/79 (102) 99 01/31/17 00:00 98.3 98 20 139/69 (92) 94 01/30/17 20:00 98.0 95 20 145/66 (92) 99 01/30/17 16:00 97.9 79 18 136/70 (92) 97 01/30/17 14:23 01/30/17 13:44 98.0 107 16 139/64 (89) 94 Room Air 01/30/17 12:12 85 16 147/72 (97) 99 Room Air 01/30/17 11:24 78 I/O 01/30/17 01/30/17 01/30/17 01/31/17 01/31/17 01/31/17 07:00 15:00 23:00 07:00 15:00 23:00 Intake Total 1300 ml 200 ml 1881 ml 358 ml Balance 1300 ml 200 ml 1881 ml 358 ml Intake Oral 100 ml 480 ml 358 ml IV Total 1200 ml 200 ml 1401 ml # Voids 1 6 # Bowel Movements 2 0 Laboratory Laboratory Tests Test 01/30/17 14:49 01/30/17 17:25 01/30/17 20:03 01/30/17 20:05 Hemoglobin 14.9 14.3 Hematocrit 45.4 45.2 Lactic Acid Level 2.2 2.2 Stool C. difficile Toxin (PCR) NEGATIVE Stl C. difficile Toxin Epiderm 027 PRESUMPTIVE NEGATIVE Test 01/31/17 05:35 White Blood Count 19.0 Red Blood Count 4.72 Hemoglobin 13.8 Hematocrit 42.1 Mean Corpuscular Volume 89.1 Mean Corpuscular Hemoglobin 29.3 Mean Corpuscular Hemoglobin Concent 32.9 Red Cell Distribution Width 12.5 Platelet Count 266 Mean Platelet Volume 8.6 Neutrophils (%) (Auto) 82.5 Lymphocytes (%) (Auto) 7.9 Monocytes (%) (Auto) 6.4 Eosinophils (%) (Auto) 0.3 Basophils (%) (Auto) 2.9 Neutrophils # (Auto) 15.6 Lymphocytes # (Auto) 1.5 Monocytes # (Auto) 1.2 Eosinophils # (Auto) 0.1 Basophils # (Auto) 0.6 CBC Comment AUTO DIFF Differential Comment AUTO DIFF CONFIRMED Platelet Estimate NORMAL Platelet Morphology Comment NORMAL Red Cell Morphology Comment NORMAL Blood Urea Nitrogen 9 Creatinine 0.77 Random Glucose 109 Calcium Level 8.1 Sodium Level 139 Potassium Level 3.6 Chloride Level 105 Carbon Dioxide Level 25.2 Anion Gap 9 Estimat Glomerular Filtration Rate 79 Date/Time Source Procedure Growth Status 01/30/17 13:15 Blood Peripheral Aerobic Blood Culture - Preliminary NO GROWTH IN 1 DAY Resulted 01/30/17 13:15 Blood Peripheral Anaerobic Blood Culture - Preliminary NO GROWTH IN 1 DAY Resulted 01/30/17 20:00 Stool Stool Stool Pus (DARION) - Final RARE WBC Complete Imaging Last Impressions Abdomen/Pelvis CT 01/30/17 1131 Signed Impressions: Service Date/Time: Monday, January 30, 2017 12:42 - CONCLUSION: Colitis involving most of the colon, sparing the sigmoid which has multiple diverticuli There is no free fluid or free air. Steve Taylor MD FACR Abdomen X-Ray 01/30/17 1028 Signed Impressions: Service Date/Time: Monday, January 30, 2017 10:33 - CONCLUSION: Negative. Minimal stool sigmoid colon. Steve Taylor MD FACR Physical Exam HEENT: Normocephalic; atraumatic. CHEST: Even/unlabored CARDIAC: RRR ABDOMEN: Soft, mildly distended, diffuse tenderness; no hepatosplenomegaly; bowel sounds active x 4. EXTREMITIES: No clubbing, cyanosis, or edema. SKIN: Normal; no rash; no jaundice. 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 (Mahogany Easton) Assessment and Plan Plan Assessment: - BRB that began yesterday. Four episodes today. Denies stool, reports jayla, bright red blood. CT abdomen/pelvis W IV Contrast (01/30) --> Colitis involving most of the colon, sparing the sigmoid which has multiple diverticuli. There is no free fluid or free air. Known history of diverticulosis by colonoscopy in 2009. C diff negative. Stool enteric pathogens pending. Will add Ova and Parasites. Continue Cipro and Flagyl for possible infectious cause. H/H 13.8/42.1. - Dysphagia to liquids and solids of several years-duration and that is not progressive over the last year's. Would recommend EGD when more stable. Plan: - Colonoscopy tomorrow - Obtain consents - JenniferLY prep - NPO after MN - Clear liquids now - Monitor H/H - Transfuse as needed - Continue Flagyl - Continue Cipro - Stool studies pending - Supportive care - Further recommendations to follow based on results of above Pt has been seen and examined by myself and Dr. 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 Dysphagia to solids reported. EGD/Dil/Colonoscopy planned for tomorrow. (Satya Maynard MD) Mahogany Easton Jan 31, 2017 11:27 Satya Maynard MD Jan 31, 2017 13:48
[2017-01-31 12:00] VITALS: BP 139/71; PULSE 90; RESP 14; TEMP 98.3; O2SAT 100
[2017-01-31] MEDS: buPROPion HCL 75 MG TAB PO SCH ×2 (12:36→20:54)
[2017-01-31 16:00] VITALS: BP 153/80; PULSE 84; RESP 14; TEMP 98.2; O2SAT 99
[2017-01-31] MEDS ORDERED: PEG (High)/E-LYTE SOLN 4000 ML BTL PO ONE (16:00)
[2017-01-31 20:00] VITALS: BP 158/97; PULSE 91; RESP 20; TEMP 97.8; O2SAT 96
[2017-01-31] MEDS: ONDANSETRON HCL 4 MG/2 ML VIAL IV PUSH PRN (21:08)
[2017-02-01] VITALS: BP 157/84; PULSE 86; RESP 20; TEMP 97.8; O2SAT 98
[2017-02-01] MEDS: CIPROFLOXACIN 400 MG PREMIX 200 ML IV SCH ×2 (00:19→12:37)
[2017-02-01 04:00] VITALS: BP 128/65; PULSE 100; RESP 20; TEMP 99.1; O2SAT 96
[2017-02-01] MEDS: metroNIDAZOLE 500 MG INJ 100 ML IV SCH ×3 (04:37→20:59)
[2017-02-01 08:00] VITALS: BP 132/65; PULSE 96; RESP 18; TEMP 98.7; O2SAT 97
--- NOTE | 2017-02-01 08:55 | HHI.PR ---
Subjective Remarks No n/v/d/c. Went for egd Objective Vitals Vital Signs Date Time Temp Pulse Resp B/P (MAP) Pulse Ox O2 Delivery O2 Flow Rate FiO2 02/01/17 08:00 98.7 96 18 132/65 (87) 97 02/01/17 04:00 99.1 100 20 128/65 (86) 96 02/01/17 00:00 97.8 86 20 157/84 (108) 98 01/31/17 21:55 20 01/31/17 20:00 97.8 91 20 158/97 (117) 96 01/31/17 16:00 98.2 84 14 153/80 (104) 99 01/31/17 12:00 98.3 90 14 139/71 (93) 100 I/O 01/31/17 01/31/17 01/31/17 02/01/17 02/01/17 02/01/17 07:00 15:00 23:00 07:00 15:00 23:00 Intake Total 1881 ml 358 ml 2020 ml 2400 ml 800 ml Output Total 100 ml Balance 1881 ml 358 ml 1920 ml 2400 ml 800 ml Intake Oral 480 ml 358 ml 720 ml 2000 ml IV Total 1401 ml 1300 ml 400 ml 800 ml Output Stool Total 0 ml Emesis 100 ml # Voids 6 12 5 # Bowel Movements 0 1 Result Diagram: 01/31/17 0535 01/31/17 0535 Imaging Last Impressions Abdomen/Pelvis CT 01/30/17 1131 Signed Impressions: Service Date/Time: Monday, January 30, 2017 12:42 - CONCLUSION: Colitis involving most of the colon, sparing the sigmoid which has multiple diverticuli There is no free fluid or free air. Steve Taylor MD FACR Abdomen X-Ray 01/30/17 1028 Signed Impressions: Service Date/Time: Monday, January 30, 2017 10:33 - CONCLUSION: Negative. Minimal stool sigmoid colon. Steve Taylor MD FACR Objective Remarks GENERAL: Well-developed, well-nourished, in no acute distress. alert and orientated CARDIAC: Regular rhythm, regular rate. S1/S2 are heard. No murmurs gallops or rubs. LUNGS: Clear to auscultation bilaterally. No wheeze, rhonchi or rales. No use of accessory muscles on inspiration or expiration. ABDOMEN: Soft, mild diffuse tenderness noted, nondistended. Bowel sounds heard in all 4 quadrants. No organomegaly or masses. Negative rebound, negative guarding EXTREMITIES: No edema, pulses are equal bilaterally. No cyanosis or clubbing NEUROLOGY: Mood and affect appear appropriate. Cranial nerves II through XII grossly intact. Muscle strength 5/5 in upper and lower extremities bilaterally. Deep tendon reflexes are 2+ in upper and lower extremities bilaterally. A/P Problem List: (1) Sepsis ICD Code: A41.9 - Sepsis, unspecified organism Status: Acute (2) Colitis ICD Code: K52.9 - Noninfective gastroenteritis and colitis, unspecified Status: Acute (3) GI bleed ICD Code: K92.2 - Gastrointestinal hemorrhage, unspecified Status: Acute Assessment and Plan Sepsis Patient meets criteria with leukocytosis, tachycardia, colitis Patient started on Flagyl and Cipro IV Urinalysis was clear Lactic acid level 2.1 Obtain stool studies, blood cultures Colitis involving most of the colon sparing the sigmoid Likely infectious in nature, however inflammatory cannot be completely ruled out GI consulted for recommendations Monitor stool studies GI bleed with Hematochezia Likely secondary to colitis Monitor hemoglobin and hematocrit Transfuse if hemoglobin below 8.0 Anxiety Continue home medications DVT prevention Sequential compression devices, avoid chemical prophylaxis secondary to GI bleed Discussed Condition With patient, nurse, family at bedside DC plan: pending improvement plan for EGD by YELENA today 02/01. DC when cleared by Kelley Carpenter MD Feb 01, 2017 08:55
[2017-02-01] MEDS: SODIUM CHLOR 0.9% 1000 ML INJ 1,000 ML IV SCH ×2 (08:56→15:40)
[2017-02-01] MEDS: buPROPion HCL 75 MG TAB PO SCH ×2 (09:03→20:58)
[2017-02-01] MEDS: SODIUM CHLORIDE 0.9% FLUSH 10 ML FLUSH IV FLUSH SCH ×2 (09:03→20:58)
[2017-02-01 12:00] VITALS: BP 160/76; PULSE 88; RESP 18; TEMP 98.7; O2SAT 96
[2017-02-01] MEDS ORDERED: PROPOFOL 200 MG/20 ML AMP IV ONE (12:00)
[2017-02-01] MEDS ORDERED: LACTATED RINGER'S 1000 ML INJ 1,000 ML ONE (13:31)
--- NOTE | 2017-02-01 14:16 | GIPROC ---
[facility] [address] [place] [address], [id number] EGD PROCEDURE REPORT EXAM DATE: 02/01/2017 PATIENT NAME: Verito Reyes MR #: [id number] BIRTHDATE: 1965 ATTENDING: Satya Maynard MD ORDER #: [id number] CASE MANAGER: Nicky Arthur and Shakira Hawkins STATUS: inpatient INDICATIONS: The patient is a 51 yr old female here for an EGD due to dysphagia PROCEDURE PERFORMED: EGD w/ biopsy EGD w/ dilation of esophagus via guidewire MEDICATIONS: None and Per Anesthesia. TOPICAL ANESTHETIC: CONSENT: The patient understands the risks and benefits of the procedure and understands that these risks include, but are not limited to: sedation, allergic reaction, infection, perforation and/or bleeding. Alternative means of evaluation and treatment include, among others: physical exam, x-rays, and/or surgical intervention. The patient elects to proceed with this endoscopic procedure. medical equipment was checked for proper function. Hand hygiene and appropriate measures for infection prevention was taken. After the risks, benefits and alternatives of the procedure were thoroughly explained, Informed consent was verified, confirmed and timeout was successfully executed by the treatment team. The patient was anesthetized with topical anesthesia and the Pentax [id number] endoscope was introduced through the mouth and advanced to the second portion of the duodenum. Retroflexed views revealed no abnormalities The gastroscope was then slowly withdrawn and removed. 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 The stricture was easily traversable. A biopsy was performed using cold forceps. Sample sent for histology. The stricture was dilated using a 17mm (51Fr) savary dilator over guidewire. STOMACH: There was erythematous moderate gastritis in the gastric antrum. A biopsy was performed using cold forceps. Sample sent for histology. DUODENUM: The duodenal mucosa appeared normal in the bulb and second portion of the duodenum. ADVERSE EVENTS: There were no complications. IMPRESSIONS: 1. There was a short stricture in the distal esophagus 2. There was erythematous gastritis in the gastric antrum; biopsy was performed 3. Normal duodenal mucosa in the bulb and second portion of the duodenum 4. Retroflexed views revealed no abnormalities RECOMMENDATIONS: 1. Await biopsy results. Biopsy results will not be ready for 7-10 days. If you don't hear from us in two weeks, call our office for biopsy results. 2. Anti-reflux regimen 3. Continue PPI 4. Avoid NSAIDS PATIENT CONDITION: stable DISPOSITION: Inpatient REPEAT EXAM: Return 1 year EGD pending biopsy results Satya Maynard MD eSigned: Satya Maynard MD 02/01/2017 2:16 PM cc: Carlos Elias M.D. PATIENT NAME: Verito Reyes MR#: [id number]
--- NOTE | 2017-02-01 14:19 | GIPROC ---
[facility] [address] [place] [address], [id number] COLONOSCOPY PROCEDURE REPORT EXAM DATE: 02/01/2017 PATIENT NAME: Verito Reyes MR #: [id number] BIRTHDATE: 1965 ENDOSCOPIST: Satya Maynard MD ORDER #: [id number] NAILHEAD SETTER: Shakira Hawkins RN STATUS: inpatient INDICATIONS: The patient is a 51 yr old female here for a colonoscopy due to abdominal pain, abdominal pain in the left lower quadrant, and an abnormal CT PROCEDURE PERFORMED: Colonoscopy with biopsy MEDICATIONS: None and Per Anesthesia. PREP QUALITY: The Yulee Bowel Prep Score was Right colon 1, Mid colon 2, and Left colon 2. Total = 5. PREP TYPE:GoLytely ESTIMATED BLOOD LOSS: None CONSENT: The patient understands the risks and benefits of the procedure and understands that these risks include, but are not limited to: sedation, allergic reaction, infection, perforation and/or bleeding. Alternative means of evaluation and treatment include, among others: physical exam, x-rays, and/or surgical intervention. The patient elects to proceed with this endoscopic procedure. medical equipment was checked for proper function. Hand hygiene and appropriate measures for infection prevention was taken. After the risks, benefits and alternatives of the procedure were thoroughly explained, Informed consent was verified, confirmed and timeout was successfully executed by the treatment team. A digital exam revealed external hemorrhoids The Pentax [id number] endoscope was introduced through the anus and advanced to the cecum, which was identified by both the appendix and ileocecal valve. The instrument was then slowly withdrawn as the colon was fully examined. COLON FINDINGS: Severe diverticulosis was noted in the sigmoid colon. No bleeding was noted from the diverticulosis. A 10 x 10cm circumferential patch of colitis was found in the transverse colon. The mucosa was congested, edematous, erythematous, friable and ulcerated. This is consistent with infectious colitis disease. Multiple biopsies were performed using cold forceps. Retroflexed views revealed internal hemorrhoids and Retroflexed views revealed medium internal hemorrhoids The scope was then completely withdrawn from the patient and the procedure terminated. PROCEDURE WITHDRAWAL TIME:6minutes ADVERSE EVENTS: There were no complications. IMPRESSIONS: 1. Severe diverticulosis was noted in the sigmoid colon 2. 10 x 10cm circumferential colitis was found in the transverse colon; The mucosa was congested, edematous, erythematous, friable and ulcerated; This is consistent with infectious colitis.; multiple biopsies were performed using cold forceps 3. Retroflexed views revealed internal hemorrhoids 4. Retroflexed views revealed medium internal hemorrhoids 5. Revealed external hemorrhoids RECOMMENDATIONS: 1. Await biopsy results. Biopsy results will not be ready for 7-10 days. If you don't hear from us in two weeks, call our office for results. 2. Continue surveillance 3. Yearly hemoccult 4. No seeds, nuts and popcorn in diet RECALL: Return 1 year Colonoscopy, pending biopsy results Satya Maynard MD eSigned: Satya Maynard MD 02/01/2017 2:19 PM cc: Carlos Elias M.D. PATIENT NAME: Verito Reyes MR#: [id number]
--- NOTE | 2017-02-01 14:21 | EKG ---
Date Performed: 02/01/2017 Time Performed: 06:02:12 PTAGE: 51 years EKG: Sinus rhythm NORMAL ECG PREVIOUS TRACING : 04/18/2015 00.09 DOCTOR: Yanick Jay Interpretating Date/Time 02/01/2017 14:21:07
[2017-02-01 16:00] VITALS: BP 139/69; PULSE 97; RESP 18; TEMP 99; O2SAT 97
[2017-02-01 17:05] LABS: AUTOMATED NEUTROPHIL # 16.1 TH/MM3 (1.8-7.7); BASOPHIL # 0.2 TH/MM3 (0-0.2); BASOPHIL % 1.3 % (0.0-2.0); EOSINOPHIL # 0.1 TH/MM3 (0-0.4); EOSINOPHIL % 0.6 % (0.0-4.0); HEMATOCRIT 40.2 % (35.0-46.0); HEMOGLOBIN 13.2 GM/DL (11.6-15.3); LYMPH % 6.8 % (9.0-44.0); LYMPHOCYTE # 1.2 TH/MM3 (1.0-4.8); MEAN CELL VOLUME 89.2 FL (80.0-100.0); MEAN CORPUSCULAR HEMOGLOBIN 29.3 PG (27.0-34.0); MEAN CORPUSCULAR HGB CONC 32.9 % (32.0-36.0); MONO % 3.1 % (0.0-8.0); MONOCYTE # 0.6 TH/MM3 (0-0.9); NEUT % 88.2 % (16.0-70.0); PLATELET COUNT 245 TH/MM3 (150-450); RED CELL DISTRIBUTION WIDTH 12.5 % (11.6-17.2); WHITE BLOOD COUNT 18.2 TH/MM3 (4.0-11.0)
[2017-02-01 20:00] VITALS: BP 134/60; PULSE 96; RESP 18; TEMP 99.6; O2SAT 96
[2017-02-01] MEDS: TEMAZEPAM 15 MG CAP PO PRN (20:58)
[2017-02-02] VITALS: BP 130/65; PULSE 93; RESP 18; TEMP 99.4; O2SAT 95
[2017-02-02] MEDS: CIPROFLOXACIN 400 MG PREMIX 200 ML IV SCH ×2 (00:58→12:15)
[2017-02-02] MEDS: SODIUM CHLOR 0.9% 1000 ML INJ 1,000 ML IV SCH ×2 (01:01→12:15)
[2017-02-02] MEDS: metroNIDAZOLE 500 MG INJ 100 ML IV SCH ×2 (04:48→13:46)
[2017-02-02 07:50] VITALS: BP 125/71; PULSE 80; RESP 20; TEMP 97.8; O2SAT 97
--- NOTE | 2017-02-02 08:23 | HHI.PR ---
Subjective Remarks In the bed, appears in nad. no n/v/d/c. Did not have anyabd pain and no BM no blood per rectu, feels good and wants to go home Objective Vitals Vital Signs Date Time Temp Pulse Resp B/P (MAP) Pulse Ox O2 Delivery O2 Flow Rate FiO2 02/02/17 00:00 99.4 93 18 130/65 (86) 95 02/01/17 20:00 99.6 96 18 134/60 (84) 96 02/01/17 16:00 99.0 97 18 139/69 (92) 97 02/01/17 14:55 84 16 115/62 (79) 99 02/01/17 14:40 84 16 115/62 (79) 99 02/01/17 14:25 97.4 89 18 117/63 (81) 100 02/01/17 12:00 98.7 88 18 160/76 (104) 96 I/O 02/01/17 02/01/17 02/01/17 02/02/17 02/02/17 02/02/17 07:00 15:00 23:00 07:00 15:00 23:00 Intake Total 2400 ml 1700 ml 750 ml 1271 ml Output Total 650 ml Balance 2400 ml 1050 ml 750 ml 1271 ml Intake Oral 2000 ml 0 ml IV Total 400 ml 1000 ml 750 ml 1271 ml Other 700 ml Output Urine Total 650 ml # Voids 5 3 # Bowel Movements 1 1 Result Diagram: 02/01/17 1650 01/31/17 0535 Imaging Last Impressions Abdomen/Pelvis CT 01/30/17 1131 Signed Impressions: Service Date/Time: Monday, January 30, 2017 12:42 - CONCLUSION: Colitis involving most of the colon, sparing the sigmoid which has multiple diverticuli There is no free fluid or free air. Steve Taylor MD FACR Abdomen X-Ray 01/30/17 1028 Signed Impressions: Service Date/Time: Monday, January 30, 2017 10:33 - CONCLUSION: Negative. Minimal stool sigmoid colon. Steve Taylor MD FACR Objective Remarks GENERAL: Well-developed, well-nourished, in no acute distress. alert and orientated CARDIAC: Regular rhythm, regular rate. S1/S2 are heard. No murmurs gallops or rubs. LUNGS: Clear to auscultation bilaterally. No wheeze, rhonchi or rales. No use of accessory muscles on inspiration or expiration. ABDOMEN: Soft, mild diffuse tenderness noted, nondistended. Bowel sounds heard in all 4 quadrants. No organomegaly or masses. Negative rebound, negative guarding EXTREMITIES: No edema, pulses are equal bilaterally. No cyanosis or clubbing NEUROLOGY: Mood and affect appear appropriate. Cranial nerves II through XII grossly intact. Muscle strength 5/5 in upper and lower extremities bilaterally. Deep tendon reflexes are 2+ in upper and lower extremities bilaterally. A/P Problem List: (1) Sepsis ICD Code: A41.9 - Sepsis, unspecified organism Status: Acute (2) Colitis ICD Code: K52.9 - Noninfective gastroenteritis and colitis, unspecified Status: Acute (3) GI bleed ICD Code: K92.2 - Gastrointestinal hemorrhage, unspecified Status: Acute Assessment and Plan Sepsis Patient meets criteria with leukocytosis, tachycardia, colitis Patient started on Flagyl and Cipro IV Urinalysis was clear Lactic acid level 2.1 Obtain stool studies, blood cultures Colitis involving most of the colon sparing the sigmoid Likely infectious in nature, however inflammatory cannot be completely ruled out GI consulted for recommendations Monitor stool studies GI bleed with Hematochezia Likely secondary to colitis Monitor hemoglobin and hematocrit Transfuse if hemoglobin below 8.0 S/p EGD 02/01 Stricture in the distal esophagus Erythematous gastritis in the gastric antrum; biopsied, will have resilts as OP Return 1 year EGD pending biopsy results continue PPI, avoid NSAIDs Anxiety Continue home medications DVT prevention Sequential compression devices, avoid chemical prophylaxis secondary to GI bleed Discussed Condition With patient, nurse, family at bedside DC plan: pending improvement s/p EGD by GI 02/01. DC when cleared by GI, poss later today if improves and no more bleeding h/h/ stable Discharge Planning Discussed with Dr Maynard cleared patient for DC DC home in stable condition to f/u as OP with PCP and consultants Meds per med reconciliations Activity ad ethan as tolerated Diet healthy heart diet as tolerated Kelley Cerna MD Feb 02, 2017 08:23
[2017-02-02] MEDS: buPROPion HCL 75 MG TAB PO SCH (08:39)
[2017-02-02] MEDS: SODIUM CHLORIDE 0.9% FLUSH 10 ML FLUSH IV FLUSH SCH (08:40)
[2017-02-02 09:17] LABS: AUTOMATED NEUTROPHIL # 10.5 TH/MM3 (1.8-7.7); BASOPHIL # 0.4 TH/MM3 (0-0.2); BASOPHIL % 2.7 % (0.0-2.0); EOSINOPHIL # 0.2 TH/MM3 (0-0.4); EOSINOPHIL % 1.2 % (0.0-4.0); HEMATOCRIT 39.3 % (35.0-46.0); HEMOGLOBIN 12.9 GM/DL (11.6-15.3); LYMPH % 12.3 % (9.0-44.0); LYMPHOCYTE # 1.6 TH/MM3 (1.0-4.8); MEAN CELL VOLUME 88.7 FL (80.0-100.0); MEAN CORPUSCULAR HEMOGLOBIN 29.2 PG (27.0-34.0); MEAN PLATELET VOLUME 8.1 FL (7.0-11.0); MONO % 5.3 % (0.0-8.0); MONOCYTE # 0.7 TH/MM3 (0-0.9); NEUT % 78.5 % (16.0-70.0); PLATELET COUNT 251 TH/MM3 (150-450); RED BLOOD COUNT 4.43 MIL/MM3 (4.00-5.30); RED CELL DISTRIBUTION WIDTH 12.8 % (11.6-17.2); WHITE BLOOD COUNT 13.4 TH/MM3 (4.0-11.0)
--- NOTE | 2017-02-02 10:02 | HHI.GIFU ---
Subjective Remarks Pt is resting in bed, in no apparent distress. Reports she had breakfast, tolerated it well. Denies nausea, vomiting, abdominal pain. Denies blood in stool. Has had BM since colonoscopy, denies diarrhea. (Mahogany Easton) Objective Vitals I&O Vital Signs Date Time Temp Pulse Resp B/P (MAP) Pulse Ox O2 Delivery O2 Flow Rate FiO2 02/02/17 07:50 97.8 80 20 125/71 (89) 97 02/02/17 00:00 99.4 93 18 130/65 (86) 95 02/01/17 20:00 99.6 96 18 134/60 (84) 96 02/01/17 16:00 99.0 97 18 139/69 (92) 97 02/01/17 14:55 84 16 115/62 (79) 99 02/01/17 14:40 84 16 115/62 (79) 99 02/01/17 14:25 97.4 89 18 117/63 (81) 100 02/01/17 12:00 98.7 88 18 160/76 (104) 96 I/O 02/01/17 02/01/17 02/01/17 02/02/17 02/02/17 02/02/17 07:00 15:00 23:00 07:00 15:00 23:00 Intake Total 2400 ml 1700 ml 750 ml 1271 ml Output Total 650 ml Balance 2400 ml 1050 ml 750 ml 1271 ml Intake Oral 2000 ml 0 ml IV Total 400 ml 1000 ml 750 ml 1271 ml Other 700 ml Output Urine Total 650 ml # Voids 5 3 # Bowel Movements 1 1 Laboratory Laboratory Tests Test 02/01/17 16:50 02/02/17 09:10 White Blood Count 18.2 13.4 Red Blood Count 4.50 4.43 Hemoglobin 13.2 12.9 Hematocrit 40.2 39.3 Mean Corpuscular Volume 89.2 88.7 Mean Corpuscular Hemoglobin 29.3 29.2 Mean Corpuscular Hemoglobin Concent 32.9 33.0 Red Cell Distribution Width 12.5 12.8 Platelet Count 245 251 Mean Platelet Volume 8.0 8.1 Neutrophils (%) (Auto) 88.2 78.5 Lymphocytes (%) (Auto) 6.8 12.3 Monocytes (%) (Auto) 3.1 5.3 Eosinophils (%) (Auto) 0.6 1.2 Basophils (%) (Auto) 1.3 2.7 Neutrophils # (Auto) 16.1 10.5 Lymphocytes # (Auto) 1.2 1.6 Monocytes # (Auto) 0.6 0.7 Eosinophils # (Auto) 0.1 0.2 Basophils # (Auto) 0.2 0.4 CBC Comment DIFF FINAL DIFF FINAL Differential Comment Date/Time Source Procedure Growth Status 01/30/17 13:15 Blood Peripheral Aerobic Blood Culture - Preliminary NO GROWTH IN 2 DAYS Resulted 01/30/17 13:15 Blood Peripheral Anaerobic Blood Culture - Preliminary NO GROWTH IN 2 DAYS Resulted 01/30/17 20:00 Stool Stool Stool Pus (DARION) - Final RARE WBC Complete Imaging Last Impressions Abdomen/Pelvis CT 01/30/17 1131 Signed Impressions: Service Date/Time: Monday, January 30, 2017 12:42 - CONCLUSION: Colitis involving most of the colon, sparing the sigmoid which has multiple diverticuli There is no free fluid or free air. Steve Taylor MD FACR Abdomen X-Ray 01/30/17 1028 Signed Impressions: Service Date/Time: Monday, January 30, 2017 10:33 - CONCLUSION: Negative. Minimal stool sigmoid colon. Steve Taylor MD FACR Physical Exam HEENT: Normocephalic; atraumatic. CHEST: Even/unlabored CARDIAC: RRR ABDOMEN: Soft, non distended, nontender; no hepatosplenomegaly; bowel sounds active x 4. EXTREMITIES: No clubbing, cyanosis, or edema. SKIN: Normal; no rash; no jaundice. CHILD HEALTH ASSOCIATE: No focal deficits; alert and oriented times three. (Mahogany EastonP) Assessment and Plan Plan Assessment: - BRB that began yesterday. Four episodes today. Denies stool, reports jayla, bright red blood. CT abdomen/pelvis W IV Contrast (01/30) --> Colitis involving most of the colon, sparing the sigmoid which has multiple diverticuli. There is no free fluid or free air. Known history of diverticulosis by colonoscopy in 2009. C diff negative. Stool enteric pathogens negative. H/H stable, currently 12.9/39.3. Has not received transfusion. Colonoscopy (02/01) --> Severe diverticulosis in the sigmoid colon, 10 x 10 cm circumferential colitis in the transverse colon, the mucosa was congested, edematous, erythematous, friable and ulcerated. This is consistent with infectious colitis. Internal and external hemorrhoids. Biopsy pending. - Dysphagia to liquids and solids of several years-duration and that is not progressive over the last year's. EGD (02/01) --> Short stricture in the distal esophagus, dilated. Erythematous gastritis in the gastric antrum. Normal duodenal mucosa. Biopsy pending. Plan: - Continue Cipro - Continue Flagyl - TELMA - Avoid nuts, seeds, and popcorn - Colon and EGD biopsies pending - Repeat colonoscopy in one year - Repeat EGD in one year - Supportive care - Follow up in GI office in 1 week Pt has been seen and examined by myself and Dr. Maynard and this note is written on his behalf (Mahogany Easton) Physician Comments Seen and examined with DEE< doing well. Can dc home with gi fu in 1 week on po antibiotics. Discussed with Dr. Cerna. Thank you (Satya Maynard MD) Mahogany Easton Feb 02, 2017 10:02 Satya Maynard MD Feb 02, 2017 12:26
[2017-02-02 11:30] VITALS: BP 124/65; PULSE 82; RESP 20; TEMP 98.4; O2SAT 97
[2017-02-02] MEDS ORDERED: METR1TAB76 PO (14:25)
[2017-02-02] MEDS ORDERED: CIPR500T2 PO (14:25)
--- NOTE | 2017-02-02 14:26 | HHI.DCPOC ---
Discharge Care Plan Goals to Promote Your Health * To prevent worsening of your condition and complications * To maintain your health at the optimal level Directions to Meet Your Goals Take your medications as prescribed Follow your dietary instruction Follow activity as directed Keep your appointments as scheduled Take your immunizations and boosters as scheduled If your symptoms worsen call your PCP, if no PCP go to Urgent Care Center or Emergency Room Smoking is Dangerous to Your Health. Avoid second hand smoke Call the 24-hour hour crisis hotline for domestic abuse at Kelley Cerna MD Feb 02, 2017 14:26
== END 2017-02-02 15:50 | disposition home or self-care (01) | DRG 871 ==
LOC: PHED 10:13 → PHEDA 13:39 → PH3A 14:27
PROVIDERS: ADMIT Hospitalist; ATTEND Hospitalist
PROC: 0DDL8ZX Extraction of Transverse Colon, Via Natural or Artificial Opening Endoscopic, Diagnostic (ICD-10-PCS; 2017-02-01)
PROC: 0D738ZZ Dilation of Lower Esophagus, Via Natural or Artificial Opening Endoscopic (ICD-10-PCS; principal; 2017-02-01 13:39)
PROC: 0DB78ZX Excision of Stomach, Pylorus, Via Natural or Artificial Opening Endoscopic, Diagnostic (ICD-10-PCS; 2017-02-01 13:39)
DX: A41.9 Sepsis, unspecified organism (principal); K29.51 Unspecified chronic gastritis with bleeding; K57.31 Diverticulosis of large intestine without perforation or abscess with bleeding; K51.00 Ulcerative (chronic) pancolitis without complications; A09 Infectious gastroenteritis and colitis, unspecified; K92.1 Melena; K22.2 Esophageal obstruction; R13.10 Dysphagia, unspecified; K64.4 Residual hemorrhoidal skin tags; K64.8 Other hemorrhoids; F41.9 Anxiety disorder, unspecified
CPT/HCPCS: 74020; 74177; 80048; 80053; 81001; 83605; 83690; 85007; 85014; 85018; 85025; 85027; 87040; 87205; 87425; 87493; 87506; 88305; 88312; 93005; 96361; 96365; 96375; C1769; J0744; J1170; J2270; J2405; J7030; J7120; Q9967

== ENCOUNTER 2017-04-18 21:16 | Emergency (ER) | payer BC ==
[~2017-04-18] VITALS: Ht 165.1 cm; Wt 145.6 kg
[~2017-04-18 21:16] MED LIST: ALPR.25 PO; BUPR75TA PO; CIPR500T2 PO; METR1TAB76 PO
[2017-04-18 21:28] VITALS: BP 137/87; PULSE 117; RESP 18; TEMP 98; O2SAT 99
[2017-04-18 22:42] VITALS: BP 162/100; PULSE 94; RESP 18; TEMP 98.9; O2SAT 97
== END 2017-04-18 22:57 | disposition left against medical advice (07) ==
LOC: PHED 21:16
DX: R68.89 Other general symptoms and signs (principal)
CPT/HCPCS: 99281